=== PATIENT | male | born 1965 | race Caucasian/White ===

== ENCOUNTER → 2017-10-31 | Outpatient (CLI) | payer BC ==
[~2017-10-31] MED LIST: BACDS PO
== END ==
LOC: LAB 16:04
PROVIDERS: ATTEND Nurse Practitioner Family
DX: R14.0 Abdominal distension (gaseous) (principal); R10.33 Periumbilical pain; R14.2 Eructation; R11.0 Nausea
CPT/HCPCS: 36415; 82040; 82150; 82247; 82310; 82374; 82435; 82565; 82947; 83690; 84075; 84132; 84155; 84295; 84450; 84460; 84520

== ENCOUNTER → 2017-11-05 | Outpatient (CLI) | payer BC ==
--- NOTE | 2017-11-05 17:10 | RADIOLOGY IMAGING REPORT ---
[facility] PATIENT NAME: Mike Moss : 1965 MR: [id number] V: [id number] EXAM DATE: ORDERING PHYSICIAN: DALE CAREY TECHNOLOGIST: Location: [facility] - [place] Patient: Mike Moss : 1965 Visit/Account:[id number] Date of Sevice: 11/05/2017 ABDOMEN COMPLETE HISTORY: Nausea, abdominal pain, and bloating. COMPARISON: None. FINDINGS: Liver: Suggestion of mild hepatic steatosis. Otherwise negative. Gallbladder: Unremarkable; no stones or sludge. Common duct: Normal, 4 mm diameter. Pancreas: Partially obscured by bowel, visualized aspects unremarkable. Spleen: Negative. Kidneys: Negative. Upper abdominal aorta and IVC: Patent. Ascites: None visualized. IMPRESSION: 1. No acute findings. 2. Suggestion of mild hepatic steatosis. Report Dictated By: Clifford Crain MD at 11/05/2017 5:05 PM Report E-Signed By: Clifford Crain MD at 11/05/2017 5:06 PM WSN:[id number]
== END ==
LOC: US 15:55
PROVIDERS: ATTEND Nurse Practitioner Family
DX: K76.0 Fatty (change of) liver, not elsewhere classified (principal)
CPT/HCPCS: 76700

== ENCOUNTER 2017-12-21 02:09 | Day surgery (SDC) | payer BC ==
[~2017-12-21] VITALS: Ht 179.1 cm; Wt 83.9 kg
[~2017-12-21 02:09] MED LIST changes: +IBUP400T13 PO
[2017-12-21 06:57] VITALS: BP 164/96
[2017-12-21] MEDS ORDERED: NORMOSOL R SOLN(*) 1000 ML BAG 1,000 ML IV PRN (07:15)
[2017-12-21] MEDS ORDERED: LIDOCAINE/SOD BICARB 8.4% SYR ID ONE (07:15)
[2017-12-21 09:26] VITALS: BP 126/76
--- NOTE | 2017-12-21 09:28 | Short(Outpt) Discharge Summary ---
Discharge Summary Reason for Hosp/Final Diag: (1) Family history of colonic polyps Hospital Course & Plan: Colonoscopy with polypectomy x2 completed without problems. Departure Discharge to: Home, Self Care Discharge Instructions Home Meds Reported Medications Ibuprofen (IBUPROFEN) 400 Mg Tablet, 1 TAB PO 1-2XD, TAB 11/21/17 Diet: Regular Activity: As Tolerated Special Instructions: Your colonoscopy was completed without any problems and your prep was excellent (Good Job!!). I removed 2 polyps from your colon and they were sent to pathology. My office will call you in the next week or so and let you know what the polyps are but in any case, I recommend that you have another colonoscopy in 5 years. TRAVIS JIMENEZ MD Dec 21, 2017 09:28
[2017-12-21 09:30] VITALS: BP 112/72
[2017-12-21 09:45] VITALS: BP 118/74
[2017-12-21 09:53] VITALS: BP 123/84
[2017-12-21 09:54] VITALS: BP 119/78
== END 2017-12-21 10:05 | disposition home or self-care (01) ==
LOC: OR 02:09
PROVIDERS: ATTEND Surgery
DX: Z12.11 Encounter for screening for malignant neoplasm of colon (principal); D12.3 Benign neoplasm of transverse colon; D12.5 Benign neoplasm of sigmoid colon; Z83.71 Family history of colonic polyps
CPT/HCPCS: 88305

== ENCOUNTER → 2018-01-04 | Outpatient (CLI) | payer BC ==
[2018-01-04 07:21] LABS: PLATELET COUNT, AUTOMATED 321 K/uL (150-450)
--- NOTE | 2018-01-04 07:28 | EKG ---
FACILITY: [facility] - [place] PATIENT NAME: TREY PRESTON : [id number] MR: [id number] V: [id number] EXAM DATE: ORDERING PHYSICIAN: KAIT JAMSE TECHNOLOGIST: CEE Marquez Reason : PRE-OP Blood Pressure : / mmHG Vent. Rate : 070 BPM Atrial Rate : 070 BPM P-R Int : 128 ms QRS Dur : 104 ms QT Int : 408 ms P-R-T Axes : 065 001 031 degrees QTc Int : 440 ms Normal sinus rhythm Normal ECG No previous ECGs available Confirmed by JENISE HU ([id number]) on 01/04/2018 8:15:48 PM Referred By: JACOB Confirmed By:JENISE HU
== END ==
LOC: LAB 06:56
PROVIDERS: ATTEND Orthopaedic Surgery
DX: Z01.812 Encounter for preprocedural laboratory examination (principal); Z01.810 Encounter for preprocedural cardiovascular examination; M16.12 Unilateral primary osteoarthritis, left hip
CPT/HCPCS: 36415; 81001; 82040; 82247; 82310; 82374; 82435; 82565; 82947; 84075; 84132; 84155; 84295; 84450; 84460; 84520; 85025; 86850; 86900; 86901; 93005

== ENCOUNTER → 2019-01-17 | Outpatient (CLI) | payer BC | LOC: US 04:00 | PROVIDERS: ATTEND Nurse Practitioner Family | DX: I25.2 Old myocardial infarction (principal) | CPT/HCPCS: 93017; 93350 ==